=== PATIENT | female | born 1990 | race Caucasian/White ===

== ENCOUNTER → 2021-03-20 09:35 | Outpatient (CLI) | payer OTHER, SELFPAY ==
[2021-03-20 19:43] LABS: Add Manual Diff / Slide Review NO; Basophils Absolute Auto 100 /uL (0-100); Basophils Percent Auto 1.3 % (0-2); Eosinophils Absolute Auto 100 /uL (0-450); Eosinophils Percent Auto 2.3 % (2-4); Hematocrit 40.3 % (36-46); Hemoglobin 13.1 g/dL (12.0-16.0); Lymphocytes Absolute Auto 1500 /uL (1100-4500); Mean Corpuscular HGB Conc 32.5 % (30-36); Mean Corpuscular Hemoglobin 31.4 PG (26-34); Mean Corpuscular Volume 96.5 fL (80-100); Monocytes Absolute Auto 400 /uL (0-900); Monocytes Percent Auto 8.7 % (3-14); Neutrophils Absolute Auto 2800 /uL (1500-7000); Neutrophils Percent Auto 56.7 % (50-75); Platelet Count 207 X10^3/uL (150-400); Red Blood Cell Count 4.17 X10^6/uL (4.0-5.2); Red Cell Distribution Width 13.7 % (11.6-14.8)
[2021-03-20 19:55] LABS: Alanine Aminotransferase 15 IU/L (<35); Albumin 4.1 g/dL (3.5-5.0); Albumin Globulin Ratio 1.9 (1.0-2.8); Alkaline Phosphatase 64 U/L (38-126); Aspartate Aminotransferase 28 IU/L (14-36); BUN Creatinine Ratio 30.6 (6-22); Bilirubin Total 0.2 mg/dL (0.2-1.3); Blood Urea Nitrogen 19 mg/dL (7-17); Calcium 9.4 mg/dL (8.4-10.2); Carbon Dioxide 24 mmol/L (22-32); Chloride 108 mmol/L (98-107); Estimated Glomerular Filt Rate > 60.0 mL/min (>60); Globulin 2.2 g/dL (1.7-4.1); Glucose 87 mg/dL (70-100); HEMOLYSIS 18 (0-50); Potassium 4.1 mmol/L (3.4-5.1); Sodium 141 mmol/L (137-145); Total Protein 6.3 g/dL (6.3-8.2)
[2021-03-20 20:19] LABS: TSH w/ Reflex to FT4 4.44 uIU/mL (0.47-4.68)
== END ==
PROVIDERS: Referring Provider Family Medicine; Visit Provider Family Medicine
DX: E03.9 Hypothyroidism, unspecified (principal)
CPT/HCPCS: 80053; 84443; 85025

== ENCOUNTER 2024-12-29 09:56 | Emergency (ER) | payer OTHER, SELFPAY ==
[2024-12-29 10:08] VITALS: BP 101/69; PULSE 68; RESP 17; TEMP 36.9; O2SAT 99; BMI 22.4
--- NOTE | 2024-12-29 10:08 | DI.RAD.S_ITS ---
PROCEDURE: XR CHEST 1V INDICATIONS: chest pain TECHNIQUE: One view of the chest was acquired. COMPARISON: None. FINDINGS: Surgical changes and devices: None. Lungs and pleura: Lungs are clear. No pleural effusions or pneumothorax. Mediastinum: Mediastinal contours appear normal. Heart size is normal. Bones and chest wall: No suspicious bony lesions. Overlying soft tissues appear unremarkable. IMPRESSION: No acute cardiopulmonary abnormality is seen. Approved by: Nikhil Yeboah M.D. on 12/29/2024 at 10:16
--- NOTE | 2024-12-29 10:09 | EKG_ITS ---
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
[2024-12-29 10:35] LABS: Add Manual Diff / Slide Review NO; Basophils Absolute Auto 0 /uL (0-100); Basophils Percent Auto 0.8 % (0-2); Eosinophils Absolute Auto 100 /uL (0-450); Eosinophils Percent Auto 0.9 % (2-4); Hematocrit 40.8 % (36-46); Hemoglobin 13.8 g/dL (12.0-16.0); Lymphocytes Absolute Auto 1700 /uL (1100-4500); Lymphocytes Percent Auto 32.1 % (25-40); Mean Corpuscular HGB Conc 33.8 % (30-36); Mean Corpuscular Hemoglobin 32.1 PG (26-34); Monocytes Absolute Auto 500 /uL (0-900); Monocytes Percent Auto 9.3 % (3-14); Neutrophils Absolute Auto 3000 /uL (1500-7000); Neutrophils Percent Auto 56.9 % (50-75); Platelet Count 186 X10^3/uL (150-400); Red Blood Cell Count 4.29 X10^6/uL (4.0-5.2); Red Cell Distribution Width 12.5 % (11.6-14.8); White Blood Cell Count 5.3 X10^3/uL (4.5-11.0)
[2024-12-29 10:38] LABS: INR 1.1 (0.9-1.3); Prothrombin Time 11.9 SECONDS (9.4-12.5)
[2024-12-29 10:40] LABS: PTT Partial Thromboplastin Tim 37 SECONDS (25.1-36.5)
[2024-12-29 10:41] LABS: Alanine Aminotransferase 18 IU/L (<35); Albumin 4.6 g/dL (3.5-5.0); Albumin Globulin Ratio 1.8 (1.0-2.8); Alkaline Phosphatase 45 U/L (38-126); Aspartate Aminotransferase 27 IU/L (14-36); Bilirubin Total 0.8 mg/dL (0.2-1.3); Blood Urea Nitrogen 15 mg/dL (7-17); Calcium 9.4 mg/dL (8.4-10.2); Carbon Dioxide 24 mmol/L (22-32); Chloride 105 mmol/L (98-107); Creatine Kinase 66 U/L (30-135); Estimated Glomerular Filt Rate > 60 mL/min (>60); Globulin 2.6 g/dL (1.7-4.1); Glucose 92 mg/dL (70-100); HEMOLYSIS < 15 (0-50); Lipase 57 U/L (23-300); Magnesium 1.9 mg/dL (1.6-2.3); Potassium 4.3 mmol/L (3.4-5.1); Sodium 137 mmol/L (137-145); Total Protein 7.2 g/dL (6.3-8.2)
[2024-12-29 10:53] LABS: NT-proBNP (BNP-Adult 18+) 22 pg/mL (<125); Troponin I < 0.012 ng/mL (0.01-0.034)
--- NOTE | 2024-12-29 11:24 | ED.CHESTPAIN ---
HPI - Chest Pain General Chief Complaint: Chest Pain Stated Complaint: mild chest pain, pain on right arm, dizzy Time Seen by Provider: 12/29/24 11:21 Source: patient Mode of arrival: Family Vehicle Limitations: no limitations History of Present Illness HPI narrative: This is a 34-year-old generally healthy woman with a history of hypothyroid presenting with concern for episode of chest pain that woke her from sleep at 3:00 a.m. this morning which she described as pressure that was of short duration as well as episode of dizziness and shortness of breath yesterday and additionally feeling slightly dizzy today. She was evaluated by paramedics on [place] last night and elected to come to the ER today by [place]. Patient denies persistent chest pain, shortness of breath or other recent symptoms. She notes she feels it is possible that yesterday when she started feeling dizzy she became worried about feeling dizzy which may have made her anxious and caused her breathing to feel like it was difficult. She denies significant increased recent stress and does not have concern for severe anxiety. She states that she had her thyroid levels checked recently with her PCP and they were fine. She also states that she has had issues in the past with rapid heart rate sometimes waking her from sleep and was advised to have a 2 week threat monitoring analyst in place early this year for further evaluation but elected not to pursue this as it seemed that her symptoms had improved. She has not had any recent long flights or car rides, she is a nonsmoker and denies any calf pain or swelling. She any other symptoms complaints or concern. Related Data Previous Rx's Medication Instructions Recorded levothyroxine 88 mcg capsule 88 mcg PO DAILY #90 caps 03/27/21 Allergies Allergy/AdvReac Type Severity Reaction Status Date / Time No Known Drug Allergies Allergy Unverified 03/24/21 15:29 Review of Systems Review of Systems Narrative: See HPI Patient History Medical History Visit for suture removal Partial traumatic amputation of foot (~02/05/16) Encounter for screening for malignant neoplasm of cervix Encounter for other screening for malignant neoplasm of breast Surgical History Status post partial amputation of right foot (~02/05/16) Social History Smoking Status: Never smoker Smoking Status: Never smoker Exam Narrative Exam Narrative: GENERAL: [34] year old patient appears stated age. Well-developed patient, in mild distress. HEAD: Atraumatic. Normocephalic. EYES: Pupils equal round and reactive. Extraocular motions intact. No scleral icterus. No injection or drainage. ENT: Nose without bleeding, purulent drainage. Airway patent. NECK: Trachea midline. Non tender CARDIOVASCULAR: Regular rate and rhythm without murmurs, gallops, or rubs. RESPIRATORY: Clear to auscultation. Breath sounds equal bilaterally. No wheezes, rales, or rhonchi. EXTREMITIES: No edema or joint tenderness. Moving all extremities, normal gait BACK: Nontender without deformity or crepitance. No flank tenderness. NEURO: AOx3. SKIN: No rash or erythema of visible areas Initial Vital Signs Initial Vital Signs: Vital Signs Temperature 98.5 F 12/29/24 10:08 Pulse Rate 68 12/29/24 10:08 Respiratory Rate 17 12/29/24 10:08 Blood Pressure 101/69 12/29/24 10:08 Pulse Oximetry 99 12/29/24 10:08 Oxygen Delivery Method Room Air 12/29/24 10:08 Scores HEART Score Heart Score history: Slightly Suspicious Heart Score EKG: Normal Heart Score Age: < 45 years old Heart Score risk factors: No known risk factors Heart Score troponin: < or = to normal limit Heart Score Total: 0 Wells' Criteria for PE Clinical signs and symptoms of DVT: No PE is #1 Dx or equally likely: No Heart rate > 100: No Immobilization at least 3 days or surg in previous 4 weeks: No History of PE or DVT: No Hemoptysis: No Malignancy w/Treatment within 6 months or palliative: No Wells' PE Score total: 0 Course Orders Ordered: ED Orders 12/29/24 10:04 EKG-12 Lead Stat 12/29/24 10:08 XR chest 1V Stat 12/29/24 10:22 Complete Blood Count AUTO DIFF Stat Comprehensive Metabolic Panel Stat D Dimer Stat Lipase Stat Magnesium Stat NT-proBNP (BNP-Adult 18+) Stat PTT Partial Thromboplastin Erik Stat Prothrombin Time INR Stat Troponin & CK Cardiac Panel Stat 12/29/24 12:19 Covid-19 + FLU A/B + RSV - PCR Stat Discontinued Medications Aspirin (Aspirin 81 Mg Chew Tab) 324 mg PO NOW ONE Stop: 12/29/24 10:09 Last Admin: 12/29/24 12:22 Dose: Not Given Documented By: TC Vital Signs Vital signs: Vital Signs - 8 hr 12/29/24 10:08 12/29/24 13:47 Temperature 98.5 F 97.8 F Pulse Rate 68 53 L Respiratory Rate 17 16 Blood Pressure 101/69 105/73 Pulse Oximetry 99 100 Oxygen Delivery Method Room Air Room Air MDM - Chest Pain Differential Diagnosis Differential diagnosis: Likely atypical chest pain and other (Anxiety) Medical Records Data Attestation: I reviewed the patient's medical records. Lab Data Attestation: I reviewed the patient's lab results. 12/29/24 10:22 12/29/24 10:22 Labs: Lab Results 12/29/24 12/29/24 Range/Units 10:22 12:19 WBC 5.3 (4.5-11.0) X10^3/uL RBC 4.29 (4.0-5.2) X10^6/uL Hgb 13.8 (12.0-16.0) g/dL Hct 40.8 (36-46) % MCV 95.0 (80-100) fL MCH 32.1 (26-34) PG MCHC 33.8 (30-36) % RDW 12.5 (11.6-14.8) % Plt Count 186 (150-400) X10^3/uL Neut % (Auto) 56.9 (50-75) % Lymph % (Auto) 32.1 (25-40) % [place] % (Auto) 9.3 (3-14) % Eos % (Auto) 0.9 L (2-4) % Baso % (Auto) 0.8 (0-2) % Neut # (Auto) 3000 (8544-5190) /uL Lymph # (Auto) 1700 (3496-2207) /uL [place] # (Auto) 500 (0-900) /uL Eos # (Auto) 100 (0-450) /uL Baso # (Auto) 0 (0-100) /uL PT 11.9 (9.4-12.5) SECONDS INR 1.1 (0.9-1.3) APTT 37 H (25.1-36.5) SECONDS D-Dimer < 215 (<500) ng/ml Sodium 137 (137-145) mmol/L Potassium 4.3 (3.4-5.1) mmol/L Chloride 105 (98-107) mmol/L Carbon Dioxide 24 (22-32) mmol/L BUN 15 (7-17) mg/dL Creatinine 0.79 (0.52-1.04) mg/dL Estimated GFR > 60 (>60) mL/min BUN/Creatinine Ratio 19.0 (6-22) Glucose 92 (70-100) mg/dL Calcium 9.4 (8.4-10.2) mg/dL Magnesium 1.9 (1.6-2.3) mg/dL Total Bilirubin 0.8 (0.2-1.3) mg/dL AST 27 (14-36) IU/L ALT 18 (<35) IU/L Alkaline Phosphatase 45 (38-126) U/L Total Creatine Kinase 66 (30-135) U/L Troponin I < 0.012 (0.01-0.034) ng/mL NT-Pro-B Natriuret Pep 22 (<125) pg/mL Total Protein 7.2 (6.3-8.2) g/dL Albumin 4.6 (3.5-5.0) g/dL Globulin 2.6 (1.7-4.1) g/dL Albumin/Globulin Ratio 1.8 (1.0-2.8) Lipase 57 (23-300) U/L SARS-CoV-2 (PCR) Negative (Negative) Influenza A (RT-PCR) Flu a negative (NEGATIVE) Influenza B (RT-PCR) Flu b negative (NEGATIVE) RSV (PCR) Negative (Negative) Imaging Data Chest x-ray: My Impression: Agree with Radiology interpretation Radiologist's Impression: [address] [address] XRay Report Signed Patient: Risa Herrmann MR#: [id number] : 1990 Acct:[id number] Age/Sex: 34 / F Date of Service: 12/29/24 Loc: ED Accession Number: [id number] Procedure: XR chest 1V Ordering Provider: Dinesh Silver D.O. PROCEDURE: XR CHEST 1V INDICATIONS: chest pain TECHNIQUE: One view of the chest was acquired. COMPARISON: None. FINDINGS: Surgical changes and devices: None. Lungs and pleura: Lungs are clear. No pleural effusions or pneumothorax. Mediastinum: Mediastinal contours appear normal. Heart size is normal. Bones and chest wall: No suspicious bony lesions. Overlying soft tissues appear unremarkable. IMPRESSION: No acute cardiopulmonary abnormality is seen. Approved by: Nikhil Yeboah M.D. on 12/29/2024 at 10:16 ECG Data Attestation: I personally reviewed and interpreted this ECG as follows: Interpretation: Normal sinus rhythm heart rate [address] changes QTC within normal limits MDM Narrative Medical decision making narrative: This is a 34-year-old woman presenting with concern for chest pressure that woke her from sleep last night at 3:00 a.m.. Also complains of recent dizziness including a spell yesterday accompanied by shortness of breath and mild dizziness today. Patient was quite well-appearing, her EKG and chest x-ray are unremarkable. Cardiac labs and general labs are also unremarkable. A D-dimer was ordered as well as a viral panel for further evaluation given combination of dizziness chest pain and shortness of breath some yesterday. These also returned negative. No clear etiology for patient's symptoms. Her pain resolved completely and was of short duration this morning. She does have hypothyroid but her levels are within normal limits per patient checked recently. She was advised to follow up with her PCP and have the Holter monitor assessment that she has been recommended to get earlier this year due to reported bouts of tachycardia. She has not had tachycardia recently and so did not have this done. We discussed the possibility that anxiety may be a component, she feels she may be getting slightly anxious when she has symptoms although she does not feel that anxiety is likely the cause of her symptoms such as the chest pain she woke up with last night. I agree this is unlikely. With negative D-dimer and cardiac labs I think cardiac etiology or PE is very unlikely. Advised to follow up closely with PCP, for further evaluation and seek re-evaluation in the ER if she has return of symptoms. Return precautions provided, follow-up plan discussed, all questions answered. Discharge Plan Departure Patient Disposition: Home Clinical Impression: Atypical chest pain Activity Restrictions/Additional Instructions: *You have been diagnosed with atypical chest pain *What to do: *Please continue to take your regular medications as directed. [ ] New medication prescriptions sent to your pharmacy: [ ] [ ] New medication written as a paper prescription [X ] No new medications given *Please follow up with your primary care provider in 2-3 days, call for an appointment. Let them know you were seen in the Emergency Department and that we ask that you be seen in follow up. We will electronically transmit a record of today's note if your PCP is in our system. You came in today with concern for some chest pain this morning and some intermittent dizziness yesterday and today. All of your labs today looked good including the lab we talked about to look for blood clots. Also your EKG looked very good as well as your chest x-ray. This means that we do not have a cause for your symptoms, as you have had some issues in the last couple of months with your heart racing I do think it has a good idea to follow up with your primary care doctor and go ahead and get that threat monitoring analyst study done that they had ordered previously. Also of course if your symptoms worsen or change it is important to get re-evaluated. We did discuss the possibility that some of her symptoms could be related to stress or anxiety. If you think this is a possibility I would also encourage you to look at ways to reduce stress levels and consider seeing a counselor if you think it would be helpful. I hope you feel better soon. *If you do not have a primary care provider please contact the [facility] Resource line at [phone]. They will ask some questions about your medical history and help get you set up with a doctor in the community. *Return to Emergency Department if you should have any new, worsening or concerning symptoms, such as [fever greater than 101 F, shaking chills, worsening pain, persistent vomiting or other bothersome symptoms] Prescriptions: No Action levothyroxine 88 mcg capsule 88 mcg PO DAILY Qty: 90 3RF Stand Alone Forms: Patient Portal/API/Survey
[2024-12-29 12:26] LABS: D Dimer < 215 ng/ml (<500)
[2024-12-29 13:01] LABS: Influenza A - CEPHEID Flu A NEGATIVE (NEGATIVE); Influenza B - CEPHEID Flu B NEGATIVE (NEGATIVE); Respiratory Syncytial Virus Negative (Negative)
[2024-12-29 13:13] LABS: COVID-19 CEPHEID 4-PLEX PCR Negative (Negative)
[2024-12-29 13:47] VITALS: BP 105/73; PULSE 53; RESP 16; TEMP 36.6; O2SAT 100
== END 2024-12-29 13:48 | disposition home or self-care (01) ==
PROVIDERS: Family Medicine; Emergency Provider Student in an Organized Health Care Education/Training Program
DX: R07.89 Other chest pain (principal); R06.02 Shortness of breath; R42 Dizziness and giddiness; E03.9 Hypothyroidism, unspecified
CPT/HCPCS: 0241U; 71045; 80053; 82550; 83690; 83735; 83880; 84484; 85025; 85379; 85610; 85730; 93005; 99283; 99284